=== PATIENT | female | born 1975 | race Two or more races ===

== ENCOUNTER 2023-12-06 15:00 | Outpatient (AMB) | payer BC, MEDICAID, SELFPAY ==
[2023-12-06 15:26] VITALS: BP 132/83; PULSE 74; RESP 18; TEMP 35.8; O2SAT 96; BMI 31.6
--- NOTE | 2023-12-06 15:26 | PD.ORTHCLVIS ---
Vital signs 12/06/23 15:26 Height 1.55 m Height Method Stated Weight 75.977 kg Weight Measurement Method Standing Scale BMI 31.6 BP 132/83 H Blood Pressure Source Automatic Cuff Blood Pressure Location Right Upper Arm Position Sitting Respiration 18 Pulse 74 Pulse Source Monitor Temp 96.4 F L Temp Source Temporal Artery Scan Pulse Oximetry (%) 96 Oxygen Delivery Method Room Air Med/Allergies Allergies & Medications Allergies NKA Allergy (Unknown, Uncoded 12/06/23 15:52) No Known Allergies Allergy (Unknown, Uncoded 12/06/23 15:52) Medication Reconciliation meloxicam 7.5 mg tablet 7.5 mg PO QDAY #45 tabs 12/06/23 [Rx Confirmed 12/06/23] Subjective Visit Visit for: new patient and knee Immunization / Flu Flu Vaccine in the Last 12 Months: No Flu Vaccine Exclusion Criteria: No Exclusion Criteria History of Present Illness Chief complaint: Left knee pain Patient is a 48-year-old Female with right knee pain is clinically knee arthritis. She had an acute injury 6 weeks ago and went to the ER. They found no fracture. She is now walking without any assistive device. She reports her knee is still little bit swollen. The pain is improving Pain Pain level (0-10): 0 Ambulatory data Ambulatory device: none Treatments Improvement with previous injections: No Improvement with PT: No Improvement with NSAIDS: no Review of Systems Review of Systems: All systems negative unless otherwise noted in HPI. Exam Exam Patient is in no acute distress and is cooperative with the examination today. Breathing is nonlabored. Patient has a normal mood and affect. Bilateral extremities were evaluated and demonstrates sensation intact to light touch. Palpable pedal pulses are present. No significant edema is present. Bilateral hips were examined. The patient has no pain with log roll of the hips. Internal rotation to 30 degrees and external rotation to 30 degrees is painless. Negative FADIR. Left knee was examined today. The left knee is in reasonable alignment. Range of motion from 0-120 degrees. Knee is stable to varus and valgus as well as AP translation with <5mm. Patient has a negative McMurrays. There is no pain with patellofemoral compression and no crepitus noted. The knee is nontender to palpation. The right knee was also examined. The right knee is in [varus] alignment. Range of motion from [0-115] degrees. Knee is stable to varus and valgus as well as AP translation with <5mm. Patient has a [negative] McMurrays. There is [no] pain with patellofemoral compression and [no] crepitus noted. The knee is [tender] to palpation [medially]. There is demonstrate no significant arthritis. Her medial joint space narrowing is preserved. Assessment and Plan Problem List (1) Arthritis of left knee: Status: Acute Plan: 48-year-old Female with left knee pain that has been bothering her quite a while. We will start with conservative treatment. We gave her a position for meloxicam as well as a brace. We discussed that this is not approved we can consider getting a brace. She has no mechanical symptoms and I thus will continue with conservative treatment for now (2) Pain in left knee: Status: Acute Office Procedures GNS Level of Care Nursing/Assessment Patient Status: Initial/New Patient Nursing Assessment/Reassesment: Medication Reconciliation, Update PMH in EMR and Vital Signs Coordination of Care: Complex Care and Chronic Disease 1-5, Education Complex Pt/Fam, Consent,records obtained, informed consent and Staff clarify orders Special Needs: Language special needs New Patient Charge New Patient Point Assignment: 1089 New Patient Point Charge: OPERATIONAL COMMUNICATION CHIEF Level 3 ([id number]) Past Medical History Past Medical History Have you ever been diagnosed with any of the following: Respiratory Problems Smoking: No Smoking Exposure: No
== END 2023-12-06 16:34 | disposition home or self-care (01) ==
PROVIDERS: Supervising Provider Orthopaedic Surgery Adult Reconstructive Orthopaedic Surgery; Visit Provider Orthopaedic Surgery Adult Reconstructive Orthopaedic Surgery
DX: M17.12 Unilateral primary osteoarthritis, left knee (principal); M25.562 Pain in left knee
CPT/HCPCS: 99203; G0463

== ENCOUNTER 2024-01-10 14:02 | Outpatient (AMB) | payer BC, MEDICAID, SELFPAY ==
--- NOTE | 2024-01-10 14:46 | PD.ORTHCLVIS ---
Vital signs 01/10/24 14:47 Height 1.55 m Height Method Stated Weight 75.551 kg Weight Measurement Method Standing Scale BMI 31.4 BP 108/72 Blood Pressure Source Automatic Cuff Blood Pressure Location Right Upper Arm Position Sitting Respiration 18 Pulse 84 Pulse Source Monitor Temp 97.2 F Temp Source Temporal Artery Scan Pulse Oximetry (%) 98 Oxygen Delivery Method Room Air Med/Allergies Allergies & Medications Allergies NKA Allergy (Unknown, Uncoded 01/10/24 14:47) No Known Allergies Allergy (Unknown, Uncoded 01/10/24 14:47) Medication Reconciliation meloxicam 7.5 mg tablet 7.5 mg PO QDAY #45 tabs 12/06/23 [Rx Confirmed 01/10/24] Subjective Visit Visit for: follow up visit and knee Immunization / Flu Flu Vaccine in the Last 12 Months: No Flu Vaccine Exclusion Criteria: No Exclusion Criteria History of Present Illness Chief complaint: worsening knee pain Triny is a pleasant 48 year old with worsening right knee pain. Patient denies any conservative treatment other than anti-inflammatory medication such as Meloxicam and Ibuprofen. Patient is currentlying wear a knee brace for more support. Pain Pain level (0-10): 5 Pain duration: comes and goes Pain location: inside (medial), outside (lateral), anterior and posterior Pain quality: sharp, dull, aching and burning Pain timing: increases with activity and stairs Associated signs & symptoms: numbness, weakness and stiffness Ambulatory data Ambulatory device: none (knee brace) Treatments Improvement with previous injections: No Improvement with PT: No Improvement with NSAIDS: no Review of Systems Review of Systems: All systems negative unless otherwise noted in HPI. Exam Exam Patient is in no acute distress and is cooperative with the examination today. Breathing is nonlabored. Patient has a normal mood and affect. Bilateral extremities were evaluated and demonstrates sensation intact to light touch. Palpable pedal pulses are present. No significant edema is present. Bilateral hips were examined. The patient has no pain with log roll of the hips. Internal rotation to 30 degrees and external rotation to 30 degrees is painless. Negative FADIR. Left knee was examined today. The left knee is in reasonable alignment. Range of motion from 0-120 degrees. Knee is stable to varus and valgus as well as AP translation with <5mm. Patient has a negative McMurrays. There is no pain with patellofemoral compression and no crepitus noted. The knee is nontender to palpation. The right knee was also examined. The right knee is in [varus] alignment. Range of motion from [0-115] degrees. Knee is stable to varus and valgus as well as AP translation with <5mm. Patient has a [negative] McMurrays. There is [no] pain with patellofemoral compression and [no] crepitus noted. The knee is [tender] to palpation [medially]. There is demonstrate no significant arthritis. Her medial joint space narrowing is preserved. Assessment and Plan Problem List (1) Arthritis of left knee: Status: Acute Plan: Patient is a 48-year-old Female with arthritis of mild severity degenerative discal tear. We discussed that we will try conservative management including injections and physical therapy. We will see her back to see if she is improved from this. We discussed that this is typically the treatment of choice for degenerative auscultation (2) Pain in left knee: Status: Acute Office Procedures GNS Level of Care Nursing/Assessment Patient Status: Established Patient Nursing Assessment/Reassesment: Medication Reconciliation, Update PMH in EMR and Vital Signs Coordination of Care: Complex Care and Chronic Disease 1-5, Education Complex Pt/Fam, Consent,records obtained, informed consent, 1 Ins Authorization, Ref for ancillary service, Results/Orders obtained and Staff clarify orders Established Patient Charge Established Patient Point Assignment: 130 Established Patient Point Charge: EP Level 3 (80-115) Surgical Proc/IM SQ injection Major Surgical Procedure: Yes (knee injection ) Medication Given Medication Given Medication Given: Yes Documented Dose Given: 4 Route: Infiitration Medication Given Medication Given Medication Given: Yes Documented Dose Given: 1 Route: Infiitration Office Meds Xylocaine 10 mg/mL (1 %) injection solution Performing Provider: Cory Moses MD Performing Location: [facility] Administered by: Cory Moses MD on 01/10/24 15:07 Dose Route Admin Location Dispensed Lot Number Expiration Date [facility] [employer] 20 mL Infiltration 20 mL [id number] triamcinolone acetonide 40 mg/mL suspension for injection Performing Provider: Cory Moses MD Performing Location: [facility] Administered by: Cory Moses MD on 01/10/24 15:07 Dose Route Admin Location Dispensed Lot Number Expiration Date [place] [employer] 40 mg intra-articular 1 mL [id number] [employer] Past Medical History Past Medical History Have you ever been diagnosed with any of the following: Respiratory Problems Smoking: No Smoking Exposure: No
[2024-01-10 14:47] VITALS: BP 108/72; PULSE 84; RESP 18; TEMP 36.2; O2SAT 98; BMI 31.4
== END 2024-01-10 15:03 | disposition home or self-care (01) ==
PROVIDERS: Supervising Provider Orthopaedic Surgery Adult Reconstructive Orthopaedic Surgery; Visit Provider Orthopaedic Surgery Adult Reconstructive Orthopaedic Surgery
DX: M17.12 Unilateral primary osteoarthritis, left knee (principal); M25.562 Pain in left knee
CPT/HCPCS: 20610; 99213; J3301; J3490; G0463

== ENCOUNTER 2024-04-13 14:57 | Outpatient (AMB) | payer BC, MEDICAID, SELFPAY ==
--- NOTE | 2024-04-13 14:55 | ORTHONT_ITS ---
Vital signs 04/13/24 15:07 Height 1.55 m Height Method Stated Weight 78.528 kg Weight Measurement Method Standing Scale BMI 32.6 BP 127/82 Blood Pressure Source Automatic Cuff Blood Pressure Location Right Lower Arm Position Sitting Respiration 18 Pulse 86 Pulse Source Monitor Temp 98.8 F Temp Source Temporal Artery Scan Pulse Oximetry (%) 95 Oxygen Delivery Method Room Air Med/Allergies Allergies & Medications Allergies NKA Allergy (Unknown, Uncoded 04/13/24 15:08) No Known Allergies Allergy (Unknown, Uncoded 04/13/24 15:08) Medication Reconciliation meloxicam 7.5 mg tablet 7.5 mg PO QDAY #45 tabs 12/06/23 [Rx Confirmed 04/13/24] Exam Exam Patient is in no acute distress and is cooperative with the examination today. Breathing is nonlabored. Patient has a normal mood and affect. Bilateral extremities were evaluated and demonstrates sensation intact to light touch. Palpable pedal pulses are present. No significant edema is present. Bilateral hips were examined. The patient has no pain with log roll of the hips. Internal rotation to 30 degrees and external rotation to 30 degrees is painless. Negative FADIR. Left knee was examined today. The left knee is in reasonable alignment. Range of motion from 0-120 degrees. Knee is stable to varus and valgus as well as AP translation with <5mm. Patient has a negative McMurrays. There is no pain with patellofemoral compression and no crepitus noted. The knee is nontender to palpation. The right knee was also examined. The right knee is in [varus] alignment. Range of motion from [0-115] degrees. Knee is stable to varus and valgus as well as AP translation with <5mm. Patient has a [negative] McMurrays. There is [no] pain with patellofemoral compression and [no] crepitus noted. The knee is [tender] to palpation [medially]. There is demonstrate no significant arthritis. Her medial joint space narrowing is preserved. Assessment and Plan Problem List (1) Arthritis of left knee: Status: Acute Plan: Patient is a 48-year-old Female with arthritis of mild severity arthritis. We discussed that we will try conservative management including injections and physical therapy. She did great with the last injection and would like another one. Recommend knee cortisone injection as patient would like to proceed with conservative treatment at this time. The risks and benefits of the procedure wer e reviewed with the patient and patient gave verbal consent to continue with the procedure. Procedure: performed by Dr. Moses Using sterile technique the Right knee was thoroughly prepped with alcohol, and approximately 1 cc of Kenalog 40 mg/mL and 4 cc of 1% lidocaine was injected without resistance into the medial tibial femoral joint space. The patient tolerated the procedure. (2) Pain in left knee: Status: Acute (3) Arthritis of right knee: Status: Acute Office Procedures GNS Level of Care Nursing/Assessment Patient Status: Established Patient Nursing Assessment/Reassesment: Medication Reconciliation, Update PMH in EMR and Vital Signs Coordination of Care: Complex Care and Chronic Disease 1-5, Education Complex Pt/Fam, Consent,records obtained, informed consent, Results/Orders obtained and Staff clarify orders Special Needs: Language special needs Established Patient Charge Established Patient Point Assignment: 95 Established Patient Point Charge: EP Level 3 (80-115) Surgical Proc/IM SQ injection Major Surgical Procedure: Yes (LEFT KNEE) Medication Given Medication Given Medication Given: Yes Documented Dose Given: 4 Route: Infiitration Medication Given Medication Given Medication Given: Yes Documented Dose Given: 1 Route: Infiitration Office Meds Xylocaine 10 mg/mL (1 %) injection solution Performing Provider: Cory Moses MD Performing Location: [facility] Administered by: Cory Moses MD on 04/13/24 15:19 Dose Route Admin Location Dispensed Lot Number Expiration Date [facility] [place] [employer] 20 mL Infiltration 20 mL [id number] [facility] triamcinolone acetonide 40 mg/mL suspension for injection Performing Provider: Cory Moses MD Performing Location: [facility] Administered by: Cory Moses MD on 04/13/24 15:19 Dose Route Admin Location Dispensed Lot Number Expiration Date [facility] [place] [employer] 40 mg intra-articular KNEE 1 mL [id number] 06/14/25 8863-6818-86 [facility] Questionairres Past Medical History Past Medical History Have you ever been diagnosed with any of the following: Respiratory Problems Smoking: No Smoking Exposure: No Subjective Immunization / Flu Flu Vaccine in the Last 12 Months: Yes Flu Vaccine Exclusion Criteria: Already Received History of Present Illness Patient is a 48-year-old Female with right knee pain is clinically knee arthritis. She is now walking without any assistive device. She reports her knee is still little bit swollen. The pain is improving. The last injection worked for over 3 months and she would like another injection today. Review of Systems Review of Systems: All systems negative unless otherwise noted in HPI.
[2024-04-13 15:07] VITALS: BP 127/82; PULSE 86; RESP 18; TEMP 37.1; O2SAT 95; BMI 32.6
--- NOTE | 2024-04-13 15:07 | PD.ORTHCLVIS ---
Vital signs 04/13/24 15:07 Height 1.55 m Height Method Stated Weight 78.528 kg Weight Measurement Method Standing Scale BMI 32.6 BP 127/82 Blood Pressure Source Automatic Cuff Blood Pressure Location Right Lower Arm Position Sitting Respiration 18 Pulse 86 Pulse Source Monitor Temp 98.8 F Temp Source Temporal Artery Scan Pulse Oximetry (%) 95 Oxygen Delivery Method Room Air Med/Allergies Allergies & Medications Allergies NKA Allergy (Unknown, Uncoded 04/13/24 15:08) No Known Allergies Allergy (Unknown, Uncoded 04/13/24 15:08) Medication Reconciliation meloxicam 7.5 mg tablet 7.5 mg PO QDAY #45 tabs 12/06/23 [Rx Confirmed 04/13/24] Assessment and Plan Problem List (1) Arthritis of left knee: Status: Acute (2) Pain in left knee: Status: Acute Office Procedures GNS Level of Care Nursing/Assessment Patient Status: Established Patient Nursing Assessment/Reassesment: Medication Reconciliation, Update PMH in EMR and Vital Signs Coordination of Care: Complex Care and Chronic Disease 1-5, Education Complex Pt/Fam, Consent,records obtained, informed consent, Results/Orders obtained and Staff clarify orders Special Needs: Language special needs Established Patient Charge Established Patient Point Assignment: 95 Established Patient Point Charge: EP Level 3 (80-115) Surgical Proc/IM SQ injection Major Surgical Procedure: Yes (LEFT KNEE) Medication Given Medication Given Medication Given: Yes Documented Dose Given: 4 Route: Infiitration Medication Given Medication Given Medication Given: Yes Documented Dose Given: 1 Route: Infiitration Office Meds Xylocaine 10 mg/mL (1 %) injection solution Performing Provider: Cory Moses MD Performing Location: [facility] Administered by: Cory Moses MD on 04/13/24 15:19 Dose Route Admin Location Dispensed Lot Number Expiration Date [facility] [employer] 20 mL Infiltration 20 mL [id number] [employer] triamcinolone acetonide 40 mg/mL suspension for injection Performing Provider: Cory Moses MD Performing Location: [facility] Administered by: Cory Moses MD on 04/13/24 15:19 Dose Route Admin Location Dispensed Lot Number Expiration Date [facility] [employer] Interpreter[employer]Translator 40 mg intra-articular KNEE 1 mL [id number] 06/14/25 9696-8394-84 [employer] [facility] [place] Intake Visit Data Collection New Patient or Established: Established Patient (seen at [facility] within 3 years) Reason for Visit:: 3MONTH LEFT KNEE Respite Worker Required: Yes PCP or OBGYN visit in last 3 months: Yes Hx Now: No Do You Feel Safe at Home: Yes Authorities Contacted: N/A Questionairres Past Medical History Past Medical History Have you ever been diagnosed with any of the following: Respiratory Problems Smoking: No Smoking Exposure: No Subjective Visit Visit for: follow up visit, knee and injections Immunization / Flu Flu Vaccine in the Last 12 Months: No Flu Vaccine Exclusion Criteria: Refused by Patient Personal History Red flag PMH: none Pain Pain level (0-10): 0 Ambulatory data Ambulatory device: none Treatments Number of previous injections: 1 Improvement with previous injections: Yes Improvement with PT: Yes Improvement with NSAIDS: n/a Review of Systems Review of Systems: All systems negative unless otherwise noted in HPI.
== END 2024-04-13 15:44 | disposition home or self-care (01) ==
LOC: HODSRG 14:57
PROVIDERS: Supervising Provider Orthopaedic Surgery Adult Reconstructive Orthopaedic Surgery; Visit Provider Orthopaedic Surgery Adult Reconstructive Orthopaedic Surgery
DX: M17.0 Bilateral primary osteoarthritis of knee (principal)
CPT/HCPCS: 20610; 99213; J3301; J3490; G0463